=== PATIENT | female | born 1995 | race Caucasian/White ===

== ENCOUNTER 2020-08-17 22:00 | Inpatient (IN) | payer OTHER ==
[2020-08-17] MEDS ORDERED: DINOPROSTONE 10 MG VAGINAL SUPPOSITORY VG ONE (23:04)
[2020-08-17] MEDS ORDERED: PROMETHAZINE HCL 25 MG/1 ML VIAL IVPUSH ONE (23:04)
--- NOTE | 2020-08-17 23:12 | HP ---
Past Medical History - Primary Care Physician PCP:: Phong Fitzpatrick - Admission Chief Complaint: preganacy 40.5 weeks, early labor History of Present Illness: 25 yo f c/o of contraction since last night, now stronger, no bleeding, no rom, fhr cat 1, cx closed 70 vx -2 mi, irregular contraction History Source: Patient Limitations to Obtaining History: No Limitations, Language Barrier - Past Medical History ...: 1 ...Para: 0 ...Term: 0 ...: 0 ... Weeks Gestation by Dates: 40.5 ...EDC by Sono: 08/13/20 Heme/Onc: Yes: Anemia - Past Surgical History Hx Myomectomy: No Hx Transabdominal Cerclage: No - Smoking History Have you smoked in the past 12 months: No - Alcohol/Substance Use Hx Alcohol Use: No - Social History Usual Living Arrangement: Yes: With Spouse History of Recent Travel: No Home Medications - Allergies Allergies/Adverse Reactions: Allergies Allergy/AdvReac Type Severity Reaction Status Date / Time No Known Allergies Allergy Verified 08/17/20 23:44 - Home Medications Home Medications: Ambulatory Orders Pnv No.95/Ferrous Fum/Folic AC [ Caplet] 1 each PO DAILY 08/17/20 Review of Systems - Review of Systems Constitutional: reports: No Symptoms Eyes: reports: No Symptoms HENT: reports: No Symptoms Neck: reports: No Symptoms Cardiovascular: reports: No Symptoms Respiratory: reports: No Symptoms Gastrointestinal: reports: No Symptoms Genitourinary: reports: No Symptoms Breasts: reports: No Symptoms Reported Musculoskeletal: reports: No Symptoms Integumentary: reports: No Symptoms Neurological: reports: No Symptoms Endocrine: reports: No Symptoms Hematology/Lymphatic: reports: No Symptoms Psychiatric: reports: No Symptoms Physical Exam - Maternity Constitutional: Yes: Well Nourished, No Distress, Calm Eyes: Yes: WNL, Conjunctiva Clear, EOM Intact HENT: Yes: WNL, Atraumatic, Normocephalic Neck: Yes: WNL, Supple, Trachea Midline Cardiovascular: Yes: WNL, Regular Rate and Rhythm Breast(s): Yes: WNL - Abdominal Exam/OB Fundal Height: 38 Number of Fetuses: Single Presentation: Vertex Contractions: No Regularity: Regular Intensity: Unaware Monitor Mode: External Heart Rate Location: [facility] Category: I Accelerations: Uniform Decelerations: None - Vaginal Exam/OB Vaginal Bleeding: No Speculum Exam: No Dilatation (cm): closed Effacement (%): 50 Amniotic Membrane Status: Intact Presentation: Vertex/Position Station: -2 - Physical Exam Musculoskeletal: Yes: WNL Extremities: Yes: WNL Edema: LLE: Trace, RLE: Trace Deep Tendon Reflex Grade: Normal +2 ...Motor Strength: WNL Psychiatric: Yes: WNL Hemorrhage Risk Assessment - Risk Factors Medium Risk Factors: Yes: None High Risk Factors: Yes: None Risk Score: 1 Risk Level: Medium Risk Problem List - Problems (1) Post-dates Code(s): O48.0 - POST-TERM (2) Labor established Code(s): [id number] - (3) Elective induction of labor planned Code(s): JSV2643 - Assessment/Plan admit , requesting induction, risks discussed
[2020-08-17 23:17] VITALS: BMI 35.4
[2020-08-18] MEDS: DEXTROSE 5%-LACTATED RINGERS 1,000 ML IV SCH (00:30)
[2020-08-18 01:25] LABS: BASO % 0.2 % (0-2.0); EOS % 0.7 % (0-4.5); HEMATOCRIT 39.3 % (32.4-45.2); HEMOGLOBIN 13.3 GM/dL (10.7-15.3); LYMPH % 28.3 % (8-40); MCH 30.4 pg (25.7-33.7); MCHC 33.9 g/dl (32.0-36.0); MEAN CELL VOLUME 89.7 fl (80-96); MEAN PLT VOLUME 11.2 fl (7.5-11.1); NEUT % 64.8 % (42.8-82.8); PLATELET COUNT 168 K/MM3 (134-434); RBC 4.39 M/mm3 (3.60-5.2); WHITE BLOOD COUNT 9.7 K/mm3 (4.0-10.0)
[2020-08-18 01:44] LABS: INR 0.97 (0.83-1.09); PROTHROMBIN TIME (PATIENT) 11.5 SEC (9.7-13.0)
[2020-08-18 01:47] LABS: ACTIVATED PTT 26.5 SECONDS (25.2-36.5)
[2020-08-18 01:58] LABS: BLOOD UREA NITROGEN 8.2 mg/dL (7-18); CALCIUM 8.7 mg/dL (8.5-10.1); CREATININE 0.5 mg/dL (0.55-1.3); POTASSIUM 3.9 mmol/L (3.5-5.1)
[2020-08-18] MEDS ORDERED: PROMETHAZINE HCL 25 MG/1 ML VIAL ONE (02:26)
[2020-08-18] MEDS ORDERED: BUTORPHANOL TARTRATE 1 MG/ML VIAL ONE ×2 (02:26)
--- NOTE | 2020-08-18 06:05 | PN ---
Progress Note (short form) - Note Progress Note: cx 2 cm ,80 vx -2 srom, clear , fhr cat 1, irregular contraction Problem List - Problems (1) Post-dates Code(s): O48.0 - POST-TERM (2) Labor established Code(s): [id number] - (3) Elective induction of labor planned Code(s): [id number] -
[2020-08-18] MEDS ORDERED: FENTANYL/BUPIVACAINE/NS/PF - PCEA - 50 ML DISP.SYRIN EP ONE ×3 (06:43→15:47)
[2020-08-18] MEDS ORDERED: PCA PUMP NR ONE (06:43)
[2020-08-18] MEDS ORDERED: NALOXONE HCL 0.4 MG/ML VIAL IVPUSH PRN (06:49)
[2020-08-18] MEDS ORDERED: BUPIVACAINE HCL/PF 0.25% (2.5MG/ML) 10 ML VIAL ONE ×2 (06:51→13:25)
[2020-08-18] MEDS ORDERED: FENTANYL/BUPIVACAINE/NS/PF - PCEA - 50 ML DISP.SYRIN EP SCH ×2 (07:00→13:51)
[2020-08-18] MEDS ORDERED: OXYTOCIN 30 UNITS in 0.9% NS 30 UNIT/500 ML INFUS.BAG IVPB SCH (08:00)
[2020-08-18] MEDS ORDERED: OXYTOCIN 20 UNITS in 0.9% NS 20 UNIT/1,000 ML INFUS.BAG IV ONE (15:44)
--- NOTE | 2020-08-18 15:55 | PN ---
Progress Note (short form) - Note Progress Note: cx 7 cm , 100 vx 0 , mr, fhr cat1 , regular contraction plan expect vaginal delivery Problem List - Problems (1) Post-dates Code(s): O48.0 - POST-TERM (2) Labor established Code(s): [id number] - (3) Elective induction of labor planned Code(s): [id number] -
[2020-08-18] MEDS ORDERED: BISACODYL 10 MG SUPP.RECT RC PRN (16:48)
[2020-08-18] MEDS ORDERED: BENZOCAINE 28 GM HEMORRHOIDAL OINTMENT TP PRN (16:48)
[2020-08-18] MEDS ORDERED: WITCH HAZEL 50% (TUCKS) 40 PAD/JAR PAD TP PRN (16:48)
[2020-08-18] MEDS ORDERED: BENZOCAINE 20% 57 GM BOTTLE TP PRN (16:48)
[2020-08-18] MEDS ORDERED: METHYLERGONOVINE MALEATE 0.2 MG/1 ML AMP IM PRN (16:48)
[2020-08-18 16:54] LABS: CORD BASE EXCESS -5.2 mmol/L (0-2); CORD HCO3 20.4 mmHg (20-29); CORD HCO3 22.7 mmHg (20-29); CORD PCO2 40.1 mmHg (30-78); CORD PCO2 54.3 mmHg (30-78); CORD pH 7.239 (7.14-7.44); CORD pH 7.324 (7.14-7.44)
--- NOTE | 2020-08-18 17:01 | PN ---
Delivery - Delivery Vaginal Delivery: Spontaneous (cx full , head on pernium, median episiotomy done , head delivered , no cord , ant and post. shoulder with no difficulty, live baby boy 9/9. placenta complete , median episiotomy in 3 layers with 2 chromic , ebl 300 cc , baby bonded with mom, no complication) Type of Anesthesia: Local, Epidural Episiotomy/Laceration: Midline ( cx full, head on perinium,median episiotomy done.head delivered.nasopharynx suctioned) Delivery, Single - 1 Minute Total Score: 8 5 Minutes Total Score: 9 - Feeding Plan Initial Plan: Elected not to breastfeed exclusively throughout hospitalization
[2020-08-18] MEDS: IBUPROFEN 600 MG TABLET (FP) PO PRN (18:36)
[2020-08-18] MEDS: ACETAMINOPHEN 325 MG TABLET (FP) PO PRN (18:36)
[2020-08-18] MEDS: ELECTROLYTE-148 SOLN 1,000 ML IV SCH (19:20)
[2020-08-18] MEDS ORDERED: BUTORPHANOL TARTRATE 1 MG/ML VIAL IVPUSH ONE (23:04)
[2020-08-19] MEDS: ACETAMINOPHEN 325 MG TABLET (FP) PO PRN ×2 (06:34→20:38)
[2020-08-19] MEDS: IBUPROFEN 600 MG TABLET (FP) PO PRN ×2 (06:35→20:38)
--- NOTE | 2020-08-19 06:43 | PN ---
Post Progress Note - Subjective Subjective: Voiding, tolerating Po, lochia decreased, breast feeding Post Day: 1 Type of Delivery: Vital Signs: Vital Signs Temperature 97.5 F L 08/19/20 05:26 Pulse Rate 62 08/19/20 05:26 Respiratory Rate 18 08/19/20 05:26 Blood Pressure 105/65 08/19/20 05:26 O2 Sat by Pulse Oximetry (%) 97 08/19/20 05:26 Breast Exam: Yes: Other Uterus: Yes: Fundus Firm Abdomen/GI: Yes: Abdomen soft Lochia, amount: Moderate Extremities: Yes: Calves non-tender Perineum: Yes: Laceration (repaired) Activity: Ambulating - Labs Labs: CBC WBC 9.7 K/mm3 (4.0-10.0) 08/17/20 00:45 RBC 4.39 M/mm3 (3.60-5.2) 08/17/20 00:45 Hgb 13.3 GM/dL (10.7-15.3) 08/17/20 00:45 Hct 39.3 % (32.4-45.2) 08/17/20 00:45 MCV 89.7 fl (80-96) 08/17/20 00:45 MCH 30.4 pg (25.7-33.7) 08/17/20 00:45 MCHC 33.9 g/dl (32.0-36.0) 08/17/20 00:45 RDW 13.0 % (11.6-15.6) 08/17/20 00:45 Plt Count 168 K/MM3 (134-434) 08/17/20 00:45 MPV 11.2 fl (7.5-11.1) H 08/17/20 00:45 Absolute Neuts (auto) 6.3 K/mm3 (1.5-8.0) 08/17/20 00:45 Neutrophils % 64.8 % (42.8-82.8) 08/17/20 00:45 Lymphocytes % 28.3 % (8-40) 08/17/20 00:45 Monocytes % 6.0 % (3.8-10.2) 08/17/20 00:45 Eosinophils % 0.7 % (0-4.5) 08/17/20 00:45 Basophils % 0.2 % (0-2.0) 08/17/20 00:45 Nucleated RBC % 0 % (0-0) 08/17/20 00:45 Assessment/Plan PPD # 1 in stable condition, desiring 's circumcision -Encourage ambulation -Increased PO intake -Continue PP care
[2020-08-19 08:41] LABS: BASO % 0.2 % (0-2.0); EOS % 0.5 % (0-4.5); HEMATOCRIT 35.5 % (32.4-45.2); HEMOGLOBIN 11.9 GM/dL (10.7-15.3); LYMPH % 24.8 % (8-40); MCH 30.6 pg (25.7-33.7); MCHC 33.5 g/dl (32.0-36.0); MEAN CELL VOLUME 91.4 fl (80-96); MEAN PLT VOLUME 10.4 fl (7.5-11.1); MONO % 7.6 % (3.8-10.2); NEUT % 66.9 % (42.8-82.8); PLATELET COUNT 154 K/MM3 (134-434); RBC 3.88 M/mm3 (3.60-5.2); RDW 13.2 % (11.6-15.6); WHITE BLOOD COUNT 11.9 K/mm3 (4.0-10.0)
[2020-08-19] MEDS: FERROUS SO4 325 MG TABLET (FP) PO SCH ×2 (08:52→18:05)
[2020-08-19] MEDS: PRENATAL VITAMINS W/ FOLIC ACID TABLET (FP) PO SCH (09:48)
[2020-08-19] MEDS ORDERED: SENNOSIDES/DOCUSATE COMBO (SENNA PLUS) TABLET (UD) PO PRN (22:00)
[2020-08-19] MEDS: OXYTOCIN 20 UNITS in 0.9% NS 20 UNIT/1,000 ML INFUS.BAG IV SCH (22:21)
[2020-08-19] MEDS: DEXTROSE 5%-LACTATED RINGERS 1,000 ML IV SCH (22:22)
[2020-08-19] MEDS: ELECTROLYTE-148 SOLN 1,000 ML IV SCH (22:22)
[2020-08-20] MEDS: ACETAMINOPHEN 325 MG TABLET (FP) PO PRN (08:36)
[2020-08-20] MEDS: FERROUS SO4 325 MG TABLET (FP) PO SCH (08:36)
[2020-08-20] MEDS: IBUPROFEN 600 MG TABLET (FP) PO PRN (08:37)
--- NOTE | 2020-08-20 08:56 | DS ---
Physical Examination Vital Signs: Vital Signs Temperature 98.9 F 08/19/20 21:49 Pulse Rate 81 08/19/20 21:49 Respiratory Rate 20 08/19/20 21:49 Blood Pressure 114/70 08/19/20 21:49 O2 Sat by Pulse Oximetry (%) 100 08/19/20 21:49 Findings/Remarks: Ambulating, tolerating Po, lochia decreased, passing flatus, bottle feeding. PP precautions discussed. Constitutional: Yes: Well Nourished HENT: Yes: Atraumatic Neck: Yes: Supple Cardiovascular: Yes: Regular Rate and Rhythm Respiratory: Yes: Regular Gastrointestinal: Yes: Soft ...Rectal Exam: Yes: Other Renal/: Yes: Other Breast(s): Yes: Other Musculoskeletal: Yes: WNL Extremities: Yes: WNL Edema: Yes Edema: LLE: Trace, RLE: Trace Integumentary: Yes: WNL Wound/Incision: Yes: Well Approximated Neurological: Yes: Alert, Oriented ...Motor Strength: WNL Psychiatric: Yes: Alert, Oriented Labs: CBC, BMP 08/19/20 08:10 08/17/20 00:45 Discharge Summary Problems reviewed: Yes Reason For Visit: LABOR ADMIT Current Active Problems Elective induction of labor planned (Acute) Labor established (Acute) Post-dates (Acute) Procedures: Principal: vaginal delivery Hospital Course: Uncomplicated delivery and PP recovery. patient desires to go home on PPD # 1 Plan of Treatment: Follow up in 4 weeks at health center Condition: Stable - Instructions Diet, Activity, Other Instructions: Return to regular diet and activity as tolerated. Follow up as instructed. Call MD with any questions or concerns Referrals: Phong Fitzpatrick MD [Staff Physician] - Sunil Harrell MD [Staff Physician] - Disposition: HOME - Home Medications Comprehensive Discharge Medication List: Ambulatory Orders Pnv No.95/Ferrous Fum/Folic AC [ Caplet] 1 each PO DAILY 08/17/20
[2020-08-20] MEDS: PRENATAL VITAMINS W/ FOLIC ACID TABLET (FP) PO SCH (09:05)
[2020-08-20 10:06] VITALS: BP 116/70; PULSE 83; TEMP 98.2
== END 2020-08-20 13:40 | disposition home or self-care (01) | DRG 560 ==
LOC: JDEL 22:00 → JERBED 22:30 → JLDR 23:21 → J3N 08-18 18:05
PROVIDERS: ADMIT Obstetrics & Gynecology; ATTEND Obstetrics & Gynecology
PROC: 10E0XZZ Delivery of Products of Conception, External Approach (ICD-10-PCS; principal; 2020-08-18)
PROC: 0W8NXZZ Division of Female Perineum, External Approach (ICD-10-PCS; 2020-08-18)
DX: O48.0 Post-term pregnancy (principal); O42.02 Full-term premature rupture of membranes, onset of labor within 24 hours of rupture; Z3A.40 40 weeks gestation of pregnancy; Z37.0 Single live birth; Z86.2 Personal history of diseases of the blood and blood-forming organs and certain disorders involving the immune mechanism
CPT/HCPCS: 36415; 36600; 59409; 80048; 82803; 85025; 85610; 85730; 86780; 86850; 86900; 86901; 87389; U0003